=== PATIENT | female | born 1945 | race Caucasian/White ===

== ENCOUNTER → 2016-08-22 | Day surgery (SDC) | payer MEDICARE ==
[~2016-08-22] VITALS: Ht 170.2 cm; Wt 59.9 kg
[~2016-08-22] MED LIST: ALPR0.5T PO; ASCO100089 PO; Atropine 0.4 mg/mL Inj IVPUSH PRN; B&C/1TAB2 PO; CHOL200025 PO; DESV50TA PO; DICY10CA13 PO; GLUC-120 PO; HYDR-3740 PO; LAMO200T2 PO; LUTE40CA PO; Lactated Ringer's 1,000 ML IV ONE; Lactated Ringer's 1,000 ML IV SCH; MTC5T PO; MULT-1018 PO; MetoCLOpramide 5 mg/mL 2 mL Inj IVPUSH PRN; OMEP20TA86 PO; Ondansetron 2 mg/mL 2 mL Inj IVPUSH PRN; PRE625 PO; Propofol 10,000 mCg/mL 20 mL Inj ONE; SELE200T11 PO; TURM500C7 PO; UBID100C16 PO; VITA400C64 PO
[2016-08-22 09:37] VITALS: BP 129/66; PULSE 70; RESP 16; O2SAT 96
--- NOTE | 2016-08-22 09:58 | PCM.HPANE ---
Patient Data Date of Service: Aug 22, 2016 Surgeon Admitting Provider: Attending Provider:Robert Palmer MD Primary Care Physician:Christina Jimenes MD Other Provider:Sidney Escobar Anesthesia Reason for Visit Hx Of Mauro's Esophagus Ht/WT & BMI Height (Feet): 5 Height (Inches): 7 Weight (Kilograms): 59.87 Body Mass Index 20.00 Allergies Coded Allergies: chocolate flavor (Verified Allergy, Unknown, 08/21/16) Uncoded Allergies: CHOCOLATE (Adverse Reaction, Intermediate, Diarrhea, 11/29/15) Past Anesthesia History Anesthesia History: Denies:: Abnormal Airway, Anesthesia Reactions, Difficult Intubation, Fam Anesthesia Reaction, Fam Malignant Hypertherm, Malignant Hyperthermia Diabetes History Hx Diabetes?: No MRSA MRSA: No Medications Blood Thinner: Aspirin Hypertension Medication: No Home Meds Incl Beta Marshal: No Reported Medications Hydrocodone-Acetaminophen 10-325 mg 1 Each Tablet1 Tablet PO Q6H PRN For Pain Ref 0 11/30/15 Ascorbic Acid (Vitamin C)1,000 Mg Tab.chew1,000 Mg PO DAILY Ref 0 06/28/15 Vitamin E Mixed (Vitamin E)400 Unit Nagmbkx570 Unit PO DAILY 30 Days 06/28/15 Selenomethionine (Selenium)200 Mcg Ulonaq591 Mcg PO DAILY 06/28/15 Multivitamin (Multi Vitamin Daily)1 Each Tablet1 Each PO DAILY 30 Days Ref 0 06/28/15 Turmeric Root Extract (Turmeric)500 Mg Covnuca827 Mg PO DAILY 06/28/15 Lutein 40 Mg Uwljobk81 Mg PO DAILY 06/28/15 Gluc 2Kcl/Chondr/Debbi Hy/Hy AC (Glucosamine & Chondroitin Cap)1 Each Capsule1 Each PO DAILY 06/28/15 B&C/FA/Zinc/Copper Oxide/Vit E (Stress B-Complex Tablet)1 Each Tablet1 Each PO DAILY 06/28/15 Ubidecarenone (Coq-10)100 Mg Gvgezfq900 Mg PO DAILY 06/28/15 Cholecalciferol (Vitamin D3) (Vitamin D3)2,000 Unit Tablet2,000 Unit PO DAILY 06/28/15 Desvenlafaxine Succinate ER (Pristiq ER)50 Mg Tab.er.24h50 Mg PO DAILY 04/03/14 Metoclopramide 5 Mg Tab5 Mg PO TID PRN For Nausea Ref 0 04/03/14 Lamotrigine 200 Mg Kpgmbk401 Mg PO BID 30 Days Ref 0 04/03/14 Alprazolam (Xanax)0.5 Mg Tablet0.5 Mg PO TID PRN For Anxiety Ref 0 09/18/13 Omeprazole 20 Mg Tablet.dr20 Mg PO BID 0 Days Ref 0 07/01/13 Dicyclomine 10 Mg Saxcbso06 Mg PO QID For GI Cramps Ref 0 07/01/13 Discontinued Reported Medications Estrogens Conjugated (Premarin)0.625 Mg Tablet0.625 Mg PO daily for 21 days 0 Days Ref 0 07/01/13 History History of ENT Problems?: No HEENT History: Denies:: Abnormal Airway Cataracts Difficult Intubation Dysphagia Hearing Problem Sinus Problem Denture Type: None Teeth Condition: Within Normal Limits Hx of Heart Problems?: Yes Cardiovascular History: Positive for:: Irregular Heartbeat (when I was here the last time: 12-lead revealed ST at 128 (01.09.2012)) Denies:: AICD Atrial Fibrillation Cardiac Surgery Chest Pain Congestive Heart Failure Edema Heart Murmur Hypertension Pacemaker Thrombophlebitis Valvular Heart Disease Hx of Respiratory Problem?: Yes Respiratory History: Positive for:: Pneumonia ( A CHILD) Denies:: Asthma COPD Chest Surgery Dyspnea Emphysema Hemoptysis Tuberculosis Hx Neurologic Problems?: No Neurological History: Denies:: Alzheimer's Disease CVA Dementia Dizziness Headaches Parkinson's Disease Seizures Hx of GI Problems?: Yes (Barretts) Hx of Problems?: No Genitourinary History: Denies:: HX of Hemodialysis Kidney Stones Urinary Tract Infection HX of Peritoneal Dialysis: No Female Hx: Denies:: Currently Endometriosis (Endometrial cancer) Pelvic Inflammatory Problems with Breasts? Skin History: Denies:: History Skin Disorders? Pressure Ulcers Hx Musculoskeletal Problems?: Yes Musculoskeletal History: Positive for:: Back Injury Joint Replacement (Knee) Denies:: Musculoskeletal Trauma Hx of Psycho/Social Problems?: Yes (PTSD) Psycho Social History: Positive for:: Anxiety Hx Depression Denies:: Bipolar Disorder Suicide Attempt Hx Surgeries?: Yes (bowel repair, knee replacement, tonsillectomy ) Hx Any Other Health Problems?: Yes Other History: Positive for:: Cancer (endometrial cancer with radiation 20yrs ago) Hospitalization ( 2 days for A Fib, BOWEL PERF/SEPSIS/VENT > A MO) Thyroid Disease Denies:: Endocrine Disease History Blood Transfusions: Denies:: Blood Transfuse Reaction Blood Transfusions Hx Diabetes: No Hx Alcohol Use: NoHx Substance Use: No Smoking Status: Never Smoker Have You Smoked inLast 12 mo: No Stop/Bang Treated for Sleep Apnea?: No Do You Have a CPAP Machine?: No S-Snoring: Do You Snore Loudly: No T-Tired: feel tired, fatigued: No O-Obsered: Observed not breath: No P-Blood Pressure: treated: No B- Body Mass Index > 35 kg/m2: No A- Age over 50: Yes N- Neck Large Circumference: No G- Gender Male: No WILNER Total Score: 1 WILNER Risk Assessment: Low Risk, <3 Yes Risk Assessment Category Category 1A: Patient has history of documented sleep apnea, and HAS NOT received any narcotic, sedative or anesthesia administration during this stay. Category 1B: Patient has history of documented sleep apnea, and HAS received any narcotic , sedative or anesthesia administration during this stay Category 2: Patient has SUSPECTED Obstructive Sleep Apnea, and HAS received any narcotic , sedative or anesthesia administration during this stay. Category 3: Patient has SUSPECTED Obstructive Sleep Apnea and HAS NOT received narcotic, sedative or anesthesia administration during this stay. Category 4: Outpatient in Procedural Areas with known sleep apnea or who screen positive for High Risk via the STOP/BANG questionnaire. Exam Exam Vital Signs Vital Signs Date Time Temp Pulse Resp B/P Pulse Ox O2 Delivery O2 Flow Rate FiO2 08/22/16 09:37 70 16 129/66 96 Room Air General Appearance: Alert, Oriented X3, Cooperative HEENT/AIRWAY: MP 2, Neck Movement (Full), Mouth Opening (Wide) Lungs: Clear to Auscultation, Normal Air Movement Heart: Regular Rate/Rhythm, Normal S1, Normal S2 Plan Impression Patient chart reviewed, patient interviewed and anesthestic plan with risks, benefits, and alternatives discussed, and informed consent obtained. NPO per Anesth. Guidelines: Yes ASA Physical Status: ASA2 Mod Systemic Disease Anesthetic Plan: MAC Bene/Risks/Altern/Consents: Yes HP Complete Prior to Induction: Yes Bunny Aviles MD Aug 22, 2016 09:58
[2016-08-22 10:26] VITALS: BP 111/55; PULSE 62; O2SAT 96
[2016-08-22 10:40] VITALS: BP 112/99; PULSE 67; RESP 14; O2SAT 99
--- NOTE | 2016-08-22 10:40 | PCM.ANEP1 ---
Post Anesthesia PACU Phase 1 Assessment Date of Service: Aug 22, 2016 Vital Signs Vital Signs Date Time Temp Pulse Resp B/P Pulse Ox O2 Delivery O2 Flow Rate FiO2 08/22/16 10:26 36.2 62 111/55 96 Room Air 08/22/16 09:37 70 16 129/66 96 Room Air Anesthetic Administered: MAC Level of Alertness: Sleepy, easy to arouse JOHANSEN's with Equal Strength: Yes Pain: No Nausea or Vomiting: No CV Function & Hydration Stable: Yes Airway Device: Oxygen Delivery: Room Air Lungs: Clear to Auscultation, Normal Air Movement PACU Phase 2 Assessment Complications: No Follow up Care: N/A Patient Instructions Provided: N/A Bunny Aviles MD Aug 22, 2016 10:40
--- NOTE | 2016-08-22 10:44 | ENDO ---
[address] [address] ENDOSCOPY PROCEDURE PATIENT: RONI HERNANDEZ : 1945 MR#: [id number] ADMIT: 08/22/2016 JOB ID: [id number] DATE OF SERVICE: 08/22/2016 PRIMARY PROVIDER: Roni Jimenes MD. PROCEDURE: Esophagogastroduodenoscopy with biopsy. INDICATIONS: A 70-year-old female with a history of Mauro's and high-grade dysplasia, status post mucosectomy. She reports for surveillance. Last exam in 2015, did not reveal any recurrent Mauro's. EQUIPMENT: [id number]. SEDATION: Monitored anesthesia as provided by Dr. Bunny Aviles. COMPLICATIONS: None identified. PROCEDURE INFORMATION: After the risks and benefits were explained, written and verbal informed consent was obtained. The patient was brought into the endoscopy suite and placed into the left lateral decubitus position. Sedation was achieved using the above-stated medications with the addition of oxygen via nasal cannula. The scope was introduced into the mouth through the bite block, and advanced under direct visualization to the second portion of the duodenum. The scope was slowly withdrawn to carefully examine the mucosa for any defects or lesions. Retroflexed views were accomplished in the stomach. The stomach was decompressed. The scope removed from the patient who tolerated the procedure well. FINDINGS: 1. Duodenum: This appears normal from the bulb through to the second portion. 2. Stomach: No significant mucosal pathology. No ulcers. No outlet obstruction. No mass lesions. Retroflexed views of the LES were rather unremarkable. 3. Esophagus: The squamocolumnar junction generally correlated with the top of the gastric folds. The GEJ was at about 37 cm from the incisors. In the 7 o'clock through 10 o'clock location there was arguably a very subtle extension up into the tubular esophagus but I suspect once again this is just the normal variability of the Z-line. We targeted this area for biopsy to exclude any recurrence of specialized intestinal metaplasia. There was no evidence of any nodularity. No ulcerations, no active inflammation anywhere. ENDOSCOPIC DIAGNOSES: 1. Subtle sliding hiatal hernia. 2. Normal appearing Z-line -- biopsied. RECOMMENDATIONS: 1. Await histopathology. 2. Repeat EGD for surveillance will likely be recommended for one year with anesthesia.
[2016-08-22 10:51] VITALS: BP 130/71; PULSE 70; RESP 14; O2SAT 97
--- NOTE | 2016-08-24 16:12 | PATH ---
SURGICAL PATHOLOGY Attending Physician:Amaya Grimm CASE STATUS: Signed Out PATIENT NAME: RONI HERNANDEZ PID: [id number] : 1945 DATE COLLECTED:08/22/2016 17:09 SPECIMEN: Esophagus, Biopsy CLINICAL HISTORY: 1). GASTRO-ESOPHAGEAL JUNCTION BIOPSY FINAL DIAGNOSIS: Gastroesophageal Junction, Biopsy: Mildly inflamed portion of columnar mucosa with no diagnostic abnormality. Negative for intestinal metaplasia, dysplasia, and malignancy. ICD10: K20.9 GROSS DESCRIPTION: The specimen is received in one formalin filled container labeled with the patient's name, sublabeled " GEJ " and consists of a less than 0.1 CM portion of tissue which is entirely submitted in one cassette. 08/22/2016DC ICD-9 CODES: CPT CODES: 1: 92098 Electronically Signed Out Jackie Fournier MD [facility] Pathology [facility] [address] [facility], [place] [address] Technical component performed at [facility], [facility] [address], [place], [address]
== END | disposition home or self-care (01) ==
LOC: END 08-05 12:54
PROVIDERS: ATTEND Internal Medicine Gastroenterology
DX: K20.9 Esophagitis, unspecified (principal); K44.9 Diaphragmatic hernia without obstruction or gangrene; F41.9 Anxiety disorder, unspecified; Z87.19 Personal history of other diseases of the digestive system; Z79.899 Other long term (current) drug therapy; Z91.018 Allergy to other foods
CPT/HCPCS: 43239; J7120